=== PATIENT | female | born 1985 | race Caucasian/White ===

== ENCOUNTER 2017-06-16 07:30 | Emergency (ER) | payer SELFPAY ==
[~2017-06-16] VITALS: Ht 167.6 cm; Wt 60.0 kg
[2017-06-16] MEDS ORDERED: CLINDAMYCIN300 M1 PO (08:00)
[2017-06-16] MEDS ORDERED: LORTAB 5-325 MG1 TAB PO (08:00)
[2017-06-16] MEDS ORDERED: MOTRIN800 MG PO (08:00)
[2017-06-16] MEDS ORDERED: FLEXERIL PO (08:11)
[2017-06-16 08:21] VITALS: BP 146/81
== END 2017-06-16 08:40 | disposition home or self-care (01) | DRG 607 ==
LOC: ED 07:30
PROC: 0HBRXZZ Excision of Toe Nail, External Approach (ICD-10-PCS; principal; 2017-06-16)
DX: L60.0 Ingrowing nail (principal); K08.89 Other specified disorders of teeth and supporting structures